=== PATIENT | male | born 1950 | race Two or more races ===

== ENCOUNTER 2018-04-22 11:31 | Inpatient (IN) | payer MEDICARE ==
[~2018-04-22] VITALS: Ht 170.2 cm; Wt 80.4 kg
[2018-04-22] MEDS ORDERED: SODIUM CHLORIDE FLUSH 10ML SYR IVF ONE (12:30)
[2018-04-22 12:59] LABS: BASOPHILS # (AUTO) 0.01 x10^3/uL (0-0.1); BASOPHILS % (AUTO) 0 % (0-1); EOSINOPHILS # (AUTO) 0.39 x10^3/uL (0-0.4); EOSINOPHILS % (AUTO) 5 % (1-7); LYMPHOCYTES # (AUTO) 1.92 x10^3/uL (1-3.4); LYMPHOCYTES % (AUTO) 23 % (22-44); MD NO; MEAN CORPUSCULAR HEMOGLOBIN 31.3 pg (27.5-34.5); MEAN CORPUSCULAR HGB CONC 33.3 g/dL (33.2-36.2); MEAN CORPUSCULAR VOLUME 93.9 fL (81-97); MEAN PLATELET VOLUME 7.6 fL (7.4-10.4); MONOCYTES # (AUTO) 0.69 x10^3/uL (0.2-0.8); MONOCYTES % (AUTO) 8 % (2-9); NEUTROPHILS % (AUTO) 64 % (42-75); PLATELET COUNT 412 x10^3/uL (130-400); RED BLOOD COUNT 4.31 x10^6/uL (4.38-5.82); RED CELL DISTRIBUTION WIDTH 13.4 % (9.4-14.8)
[2018-04-22 13:06] LABS: ALANINE AMINOTRANSFERASE 27 U/L (12-78); ALBUMIN 2.9 g/dL (3.4-5.0); ANION GAP 9 mmol/L (5-15); CALCIUM 7.9 mg/dL (8.5-10.1); CHLORIDE 103 mmol/L (98-107); CREATININE 0.66 mg/dL (0.7-1.3)
[2018-04-22 13:11] LABS: ALKALINE PHOSPHATASE 121 U/L (45-117); BILIRUBIN,TOTAL 0.5 mg/dL (0.2-1.0); TOTAL PROTEIN 8.2 g/dL (6.4-8.2); TROPONIN I < 0.015 ng/mL (0.000-0.045)
[2018-04-22] MEDS ORDERED: OMNIPAQUE 350 MG/ML, 75ML BOTTLE ONE (13:46)
[2018-04-22] MEDS ORDERED: CEFTRIAXONE PMX 1GM/50ML 50 ML ONE (14:27)
[2018-04-22] MEDS ORDERED: CEFTRIAXONE PMX 1GM/50ML 50 ML IVPB ONE (14:30)
[2018-04-22] MEDS ORDERED: AZITHROMYCIN 500 MG in SODIUM CHLORIDE 0.9% 250 ML IVPB ONE (14:30)
[2018-04-22] MEDS ORDERED: SODIUM CHLORIDE FLUSH 10ML SYR IVF PRN (15:30)
[2018-04-22] MEDS ORDERED: ENALAPRILAT 1.25 MG/ML, 2ML IVPush PRN (15:30)
[2018-04-22] MEDS ORDERED: ONDANSETRON 2MG/ML, 2ML IVPush PRN (15:30)
[2018-04-22] MEDS ORDERED: INDO50CA5 PO (16:03)
[2018-04-22] MEDS ORDERED: FLUO20CA8 PO (16:03)
[2018-04-22] MEDS ORDERED: OMEP-110 PO (16:03)
[2018-04-22] MEDS ORDERED: AMLO5TAB7 PO (16:03)
[2018-04-22] MEDS ORDERED: ATOR10TA PO (16:03)
[2018-04-22] MEDS ORDERED: ALLO300T PO (16:03)
[2018-04-22 16:58] VITALS: BP 133/72
[2018-04-22] MEDS: GUAIFENESIN 200 MG TABLET PO SCH ×2 (17:27→19:48)
[2018-04-22] MEDS: ENOXAPARIN 40 MG/0.4 ML SQ SCH (17:27)
[2018-04-22 19:59] VITALS: BP 101/61
[2018-04-23 01:47] VITALS: BP 112/72
[2018-04-23 05:49] LABS: BASOPHILS # (AUTO) 0.03 x10^3/uL (0-0.1); BASOPHILS % (AUTO) 0 % (0-1); EOSINOPHILS # (AUTO) 0.56 x10^3/uL (0-0.4); EOSINOPHILS % (AUTO) 6 % (1-7); LYMPHOCYTES # (AUTO) 2.05 x10^3/uL (1-3.4); LYMPHOCYTES % (AUTO) 24 % (22-44); MD NO; MEAN CORPUSCULAR HEMOGLOBIN 32.4 pg (27.5-34.5); MEAN CORPUSCULAR HGB CONC 34.1 g/dL (33.2-36.2); MEAN CORPUSCULAR VOLUME 94.9 fL (81-97); MONOCYTES % (AUTO) 8 % (2-9); NEUTROPHILS # (AUTO) 5.39 x10^3/uL (1.8-6.8); NEUTROPHILS % (AUTO) 62 % (42-75); PLATELET COUNT 412 x10^3/uL (130-400); RED BLOOD COUNT 4.04 x10^6/uL (4.38-5.82); RED CELL DISTRIBUTION WIDTH 13.3 % (9.4-14.8)
[2018-04-23 06:01] LABS: ALBUMIN 2.6 g/dL (3.4-5.0); ANION GAP 8 mmol/L (5-15); CALCIUM 8.6 mg/dL (8.5-10.1); CHLORIDE 102 mmol/L (98-107)
[2018-04-23 06:04] LABS: ALANINE AMINOTRANSFERASE 23 U/L (12-78); ALKALINE PHOSPHATASE 109 U/L (45-117); BILIRUBIN,TOTAL 0.6 mg/dL (0.2-1.0); CREATININE 0.73 mg/dL (0.7-1.3); TOTAL PROTEIN 7.5 g/dL (6.4-8.2)
[2018-04-23] MEDS: GUAIFENESIN 200 MG TABLET PO SCH ×4 (06:18→21:49)
[2018-04-23] MEDS ORDERED: ALBUTEROL/IPRATROPIUM 2.5MG/0.5MG, 3 ML HHN SCH (07:00)
[2018-04-23 08:17] VITALS: BP 113/67
[2018-04-23] MEDS: AMLODIPINE 5 MG TABLET PO SCH (08:47)
[2018-04-23] MEDS: INDOMETHACIN 50 MG CAPSULE PO SCH (08:47)
[2018-04-23] MEDS: OMEPRAZOLE 20 MG CAPSULE.DR PO SCH (08:47)
[2018-04-23] MEDS: FLUOXETINE HCL 20 MG CAPSULE PO SCH (08:47)
[2018-04-23] MEDS: ALLOPURINOL 300 MG TABLET PO SCH (08:47)
[2018-04-23] MEDS ORDERED: BUTALB/APAP/CAFFEINE 50MG/325MG/40MG PO PRN (10:30)
[2018-04-23] MEDS ORDERED: ACETAMINOPHEN 325 MG TABLET PO PRN (10:30)
[2018-04-23 14:50] VITALS: BP 115/71
[2018-04-23] MEDS: CEFTRIAXONE PMX 1GM/50ML 50 ML IV SCH (15:15)
[2018-04-23] MEDS: ENOXAPARIN 40 MG/0.4 ML SQ SCH (16:14)
[2018-04-23] MEDS: AZITHROMYCIN 500 MG in SODIUM CHLORIDE 0.9% 250 ML IV SCH (16:14)
[2018-04-23 19:39] VITALS: BP 107/65
[2018-04-23] MEDS: ATORVASTATIN 10 MG TABLET PO SCH (21:49)
[2018-04-24 02:18] VITALS: BP 134/65
[2018-04-24] MEDS: OMEPRAZOLE 20 MG CAPSULE.DR PO SCH (06:07)
[2018-04-24] MEDS: GUAIFENESIN 200 MG TABLET PO SCH ×4 (06:07→20:00)
[2018-04-24 07:15] VITALS: BP 119/67
[2018-04-24] MEDS: AMLODIPINE 5 MG TABLET PO SCH (09:17)
[2018-04-24] MEDS: FLUOXETINE HCL 20 MG CAPSULE PO SCH (09:17)
[2018-04-24] MEDS: INDOMETHACIN 50 MG CAPSULE PO SCH (09:17)
[2018-04-24] MEDS: ALLOPURINOL 300 MG TABLET PO SCH (09:17)
[2018-04-24 13:25] VITALS: BP 106/66
[2018-04-24] MEDS: CEFTRIAXONE PMX 1GM/50ML 50 ML IV SCH (14:57)
[2018-04-24] MEDS: ALBUTEROL/IPRATROPIUM 2.5MG/0.5MG, 3 ML NPPB PRN (15:26)
[2018-04-24] MEDS: ENOXAPARIN 40 MG/0.4 ML SQ SCH (15:30)
[2018-04-24] MEDS: AZITHROMYCIN 500 MG in SODIUM CHLORIDE 0.9% 250 ML IV SCH (16:19)
[2018-04-24] MEDS: methylPREDNISolone SOD SUCC 125 MG/2 ML IVPush SCH ×2 (16:19→22:38)
[2018-04-24 19:14] VITALS: BP 121/67
[2018-04-24] MEDS: ATORVASTATIN 10 MG TABLET PO SCH (20:00)
[2018-04-25 03:45] VITALS: BP 116/66
[2018-04-25] MEDS: GUAIFENESIN 200 MG TABLET PO SCH ×4 (05:10→20:39)
[2018-04-25] MEDS: methylPREDNISolone SOD SUCC 125 MG/2 ML IVPush SCH ×4 (05:10→23:21)
[2018-04-25] MEDS: OMEPRAZOLE 20 MG CAPSULE.DR PO SCH (07:42)
[2018-04-25 08:14] VITALS: BP 151/71
[2018-04-25] MEDS: FLUOXETINE HCL 20 MG CAPSULE PO SCH (08:36)
[2018-04-25] MEDS: INDOMETHACIN 50 MG CAPSULE PO SCH (08:36)
[2018-04-25] MEDS: AMLODIPINE 5 MG TABLET PO SCH (08:36)
[2018-04-25] MEDS: AMOXICILLIN/CLAV 875-125MG TABLET PO SCH ×2 (08:36→20:40)
[2018-04-25] MEDS: ALLOPURINOL 300 MG TABLET PO SCH (08:37)
[2018-04-25] MEDS: DOXYCYCLINE 100MG TABLET PO SCH ×2 (08:37→20:40)
[2018-04-25] MEDS: ALBUTEROL/IPRATROPIUM 2.5MG/0.5MG, 3 ML NPPB PRN (11:00)
[2018-04-25 14:54] VITALS: BP 136/65
[2018-04-25] MEDS: ENOXAPARIN 40 MG/0.4 ML SQ SCH (15:30)
[2018-04-25 18:45] VITALS: BP 129/68
[2018-04-25] MEDS: ATORVASTATIN 10 MG TABLET PO SCH (20:40)
[2018-04-26 01:01] VITALS: BP 127/66
[2018-04-26] MEDS: methylPREDNISolone SOD SUCC 125 MG/2 ML IVPush SCH ×3 (05:01→20:51)
[2018-04-26] MEDS: GUAIFENESIN 200 MG TABLET PO SCH ×4 (05:01→20:51)
[2018-04-26 07:18] VITALS: BP 126/71
[2018-04-26] MEDS: OMEPRAZOLE 20 MG CAPSULE.DR PO SCH (07:29)
[2018-04-26] MEDS: AMOXICILLIN/CLAV 875-125MG TABLET PO SCH ×2 (09:05→20:52)
[2018-04-26] MEDS: INDOMETHACIN 50 MG CAPSULE PO SCH (09:05)
[2018-04-26] MEDS: ALLOPURINOL 300 MG TABLET PO SCH (09:05)
[2018-04-26] MEDS: FLUOXETINE HCL 20 MG CAPSULE PO SCH (09:05)
[2018-04-26] MEDS: AMLODIPINE 5 MG TABLET PO SCH (09:05)
[2018-04-26] MEDS: DOXYCYCLINE 100MG TABLET PO SCH ×2 (09:05→20:52)
[2018-04-26 13:08] VITALS: BP 147/68
[2018-04-26] MEDS: ENOXAPARIN 40 MG/0.4 ML SQ SCH (15:30)
[2018-04-26 19:03] VITALS: BP 136/78
[2018-04-26] MEDS: ATORVASTATIN 10 MG TABLET PO SCH (20:52)
[2018-04-27 01:43] VITALS: BP 142/76
[2018-04-27] MEDS: GUAIFENESIN 200 MG TABLET PO SCH ×2 (05:55→11:50)
[2018-04-27] MEDS ORDERED: methylPREDNISolone SOD SUCC 125 MG/2 ML IVPush SCH (07:30)
[2018-04-27 08:00] VITALS: BP 142/77
[2018-04-27] MEDS: AMLODIPINE 5 MG TABLET PO SCH (08:32)
[2018-04-27] MEDS: FLUOXETINE HCL 20 MG CAPSULE PO SCH (08:32)
[2018-04-27] MEDS: OMEPRAZOLE 20 MG CAPSULE.DR PO SCH (08:32)
[2018-04-27] MEDS: ALLOPURINOL 300 MG TABLET PO SCH (08:32)
[2018-04-27] MEDS: DOXYCYCLINE 100MG TABLET PO SCH (08:32)
[2018-04-27] MEDS: INDOMETHACIN 50 MG CAPSULE PO SCH (08:33)
[2018-04-27] MEDS: AMOXICILLIN/CLAV 875-125MG TABLET PO SCH (08:33)
[2018-04-27] MEDS ORDERED: DOXY100T PO (12:54)
[2018-04-27] MEDS ORDERED: PRED10TA PO (12:54)
[2018-04-27] MEDS ORDERED: AMOX1TAB12 PO (12:54)
== END 2018-04-27 15:00 | disposition home or self-care (01) | DRG 196 ==
LOC: ED 12:38 → EDIP 15:14 → 3NE 16:51 → DCLOUNGE 04-27 14:48
PROVIDERS: ADMIT Internal Medicine; ATTEND Internal Medicine
DX: J84.112 Idiopathic pulmonary fibrosis (principal); J15.9 Unspecified bacterial pneumonia; D68.8 Other specified coagulation defects; J47.0 Bronchiectasis with acute lower respiratory infection; Z99.81 Dependence on supplemental oxygen; E78.5 Hyperlipidemia, unspecified; I10 Essential (primary) hypertension; M10.9 Gout, unspecified; F32.9 Major depressive disorder, single episode, unspecified; D47.3 Essential (hemorrhagic) thrombocythemia; D64.9 Anemia, unspecified
CPT/HCPCS: 36415; 71260; 80053; 83605; 83880; 84145; 84484; 85025; 87040; 87070; 87205; 93005; 94640; 96365; 96366; G0378; J0456; J0696; J1650; J2405; J7620; Q9967; J2930; J7050; J7512

== ENCOUNTER → 2020-09-24 | Outpatient (CLI) | payer MEDICARE ==
[~2020-09-24] MED LIST: ALLO300T PO; AMLO-150 PO; AMOX1TAB12 PO; ATOR10TA PO; DOXY100T PO; FLUO20CA23 PO; GUAI600T31 PO; INDO50CA15 PO; OMEP-110 PO; PRED10TA PO; PRED20TA PO
== END | disposition home or self-care (01) ==
LOC: CVU 11:53
PROVIDERS: ATTEND Internal Medicine Cardiovascular Disease
DX: I08.0 Rheumatic disorders of both mitral and aortic valves (principal); I11.9 Hypertensive heart disease without heart failure; R06.02 Shortness of breath; I45.10 Unspecified right bundle-branch block
CPT/HCPCS: 93306; 93356

== ENCOUNTER → 2020-09-26 | Outpatient (CLI) | payer MEDICARE ==
[~2020-09-26] MED LIST changes: +REGADENOSON 0.4 MG/5 ML SYRINGE ONE
== END | disposition home or self-care (01) ==
LOC: CFH 07:26
PROVIDERS: ATTEND Internal Medicine Cardiovascular Disease
DX: I45.10 Unspecified right bundle-branch block (principal); R06.02 Shortness of breath
CPT/HCPCS: 78452; 93017; A9502; J2785